=== PATIENT | female | born 1990 | race African-American/Black ===

== ENCOUNTER 2016-12-08 15:23 | Emergency (ER) | payer SELFPAY ==
[~2016-12-08] VITALS: Ht 160 cm; Wt 68.0 kg
[2016-12-08 15:38] VITALS: BP 130/84
[2016-12-08] MEDS ORDERED: BIRTH CONTROL (15:42)
== END 2016-12-09 02:00 | disposition left against medical advice (07) ==
LOC: ER 12-09 00:31
DX: R11.2 Nausea with vomiting, unspecified (principal); Z53.21 Procedure and treatment not carried out due to patient leaving prior to being seen by health care provider